=== PATIENT | male | born 1985 | race Caucasian/White ===

== ENCOUNTER 2020-02-24 18:09 | Emergency (ER) | payer BC ==
[~2020-02-24] VITALS: Ht 175.3 cm; Wt 93.0 kg
[2020-02-24 21:20] VITALS: BP_SYST 139; BP_SYST 98; BP_DIAS 58; BP_DIAS 60
--- NOTE | 2020-02-24 21:20 | NUR ---
TO TENT AMBULATORY
--- NOTE | 2020-02-24 22:30 | NUR ---
SEEN AND EXAMINED BY ERMD AND FOR D/C
[2020-02-24 23:15] VITALS: BP 121/78
--- NOTE | 2020-02-24 23:15 | NUR ---
Patient discharged with v/s stable. Written and verbal after care instructions given and explained. Patient alert, oriented and verbalized understanding of instructions. Ambulatory with steady gait. All questions addressed prior to discharge. ID band removed. Patient advised to follow up with PMD. Rx of PREDNISONE, MOTRIN given. Patient educated on indication of medication including possible reaction and side effects. Opportunity to ask questions provided and answered.
== END 2020-02-24 23:15 | disposition home or self-care (01) ==
LOC: MED 18:09
DX: U07.1 COVID-19 (principal); R05 Cough; R06.02 Shortness of breath
CPT/HCPCS: 99283